=== PATIENT | male | born 1980 | race Caucasian/White ===

== ENCOUNTER 2018-07-03 13:46 | Emergency (ER) | payer MEDICAID ==
[~2018-07-03] VITALS: Ht 175.3 cm; Wt 81.0 kg
[2018-07-03 14:00] VITALS: BP 144/66; PULSE 69; RESP 18; Ht 175.3 cm; Wt 81.0 kg
[2018-07-03] MEDS ORDERED: IBUP-1542 PO (16:28)
--- NOTE | 2018-07-03 16:54 | ERD ---
ER Documentation Chief Complaint Chief Complaint lt ankle pain /swelling , soccer injury yesterday HPI Patient is a 37-year-old male presents ER for concerns of left ankle pain and swelling times 1 day. Patient states he was playing soccer yesterday when he injured his left ankle. Patient reports rolling his ankle. Patient is unable to bear weight to the affected extremity. No previous fractures or dislocations. Patient denies any head injuries. ROS All systems reviewed and are negative except as per history of present illness. Medications Home Meds Active Scripts Ibuprofen* (Motrin*) 600 Mg Tab, 600 MG PO Q6, #30 TAB Prov:ADNREA SCHILLING PA-C 07/03/18 PMhx/Soc Medical and Surgical Hx: pt denies Medical Hx, pt denies Surgical Hx History of Surgery: No Anesthesia Reaction: No Hx Neurological Disorder: No Hx Respiratory Disorders: No Hx Cardiac Disorders: No Hx Psychiatric Problems: No Hx Miscellaneous Medical Probl: No Hx Alcohol Use: No Hx Substance Use: No Hx Tobacco Use: No Smoking Status: Never smoker FmHx Family History: No diabetes Physical Exam Vitals Vital Signs Date Temp Pulse Resp B/P (MAP) Pulse Ox O2 O2 Flow FiO2 Time Delivery Rate 07/03/18 98.1 69 18 144/66 98 14:00 (92) Physical Exam GENERAL: Well-developed, well-nourished male. Appears in no acute distress. HEAD: Normocephalic, atraumatic. EYES: Pupils are equally reactive bilaterally. EOMs grossly intact. No conjunctival erythema. NECK: Supple. No meningismus. Normal range of motion of the neck. EXTREMITIES: Equal pulses bilaterally. No peripheral clubbing, cyanosis or edema. No unilateral leg swelling. NEUROLOGIC: Alert and oriented. Moving all four extremities without any diffi culty. Normal speech. SKIN: Normal color. Warm and dry. No rashes or lesions. LLE: No obvious deformity. Swelling and ecchymosis noted to the medial aspect of the foot/ankle. Skin intact. Decreased range of ankle secondary to pain. Sensation intact to light touch. Neurovascularly intact. 2+ DP and DT pulses. Procedures/MDM ED COURSE: The patient was stable throughout ED course. I kept the patient and/or family informed of laboratory and diagnostic imaging results throughout the ED course. DIAGNOSTIC IMAGING: Read by radiologist. DIAGNOSTIC IMAGING REPORT Patient: CURRY SMITH : 1980 Age: 37 Sex: M MR #: [id number] DOS: 07/03/18 1520 Ordering MD: ANDREA SCHILLING PA-C Location: [facility] Room/Bed: PROCEDURE: XR Ankle. CLINICAL INDICATION: L ankle pain TECHNIQUE: 3 views of the left ankle were performed. COMPARISON: None. FINDINGS: Acute, minimally-displaced avulsion fracture from the distal medial malleolus with adjacent soft tissue swelling. Talar dome and ankle mortise are otherwise intact. No fibular fracture. Tiny loose body in the posterior joint space with associated joint effusion. No significant arthropathy. IMPRESSION: Minimally-displaced avulsion fracture from the medial malleolus with adjacent soft tissue swelling. Joint effusion with possible small loose body in the posterior tibiotalar joint space. RPTAT:AAJJ Physician Fifi Date Time Electronically viewed and signed by Karyn Chopra Physician on 07/03/2018 16:14 RF/ CC: ANDREA SCHILLING PA-C [id number] Patient: CURRY SMITH : 1980 Age: 37 Sex: M MR #: [id number] DOS: 07/03/18 1520 Ordering MD: ANDREA SCHILLING PA-C Location: [facility] Room/Bed: PROCEDURE: XR Left Foot. CLINICAL INDICATION: L ankle pain TECHNIQUE: AP, lateral and oblique views of the left foot was obtained. The images were reviewed on a PACS workstation. COMPARISON: None. FINDINGS: Redemonstration of medial malleolar avulsion fracture, as seen on ankle radiograph. No additional fracture or dislocation of the foot is detected. No significant arthropathy or erosive changes. IMPRESSION: Redemonstration of medial malleolar avulsion fracture as seen on ankle radiograph. No additional acute fracture of the foot is detected. RPTAT:AAJJ Physician Fifi Date Time Electronically viewed and signed by Physician Fifi on 07/03/2018 16:15 RF/ CC: ANDREA SCHILLING PA-C [id number] PROCEDURES: SPLINT APPLICATION: The patient was verbally consented at bedside prior to splint application. Patient was explained the risks, benefits and alternatives to this procedure. The patient was neurovascularly intact prior to and status post application of the splint. The patient tolerated the procedure well with no complications. Splint type: Posterior ankle splint Extremity: Left lower extremity Indication: Ankle fracture MEDICATIONS GIVEN: Patient was offered pain medication however he declined per. MEDICAL DECISION MAKING: This is a 30-year-old male presents ER for concerns of left ankle pain and swelling times 1 day after playing soccer. Vital signs were reviewed. Patient was afebrile. X-ray imaging was concerning for medial malleolar avulsion fracture. Patient was placed in a short posterior leg splint and advised to remain nonweightbearing to the affected extremity. Patient will be discharged home with crutches. Patient was advised to follow-up with orth low suspicion for opedic specialist. Referral information provided. Low suspicion for compartment syndrome or septic joint. Patient was nontoxic, [id number] prior to discharge. At this time, unable to rule out any tendon and ligament injuries. PRESCRIPTIONS: Ibuprofen DISCHARGE: At this time, patient is stable for discharge and outpatient management.I have instructed the patient to follow-up with his/her primary care physician in 1-2 days. I have discussed with the patient the possibility of needing to see an contracts specialist for further workup and imaging if the pain persists. I have instructed the patient to promptly return to the ER for any new or worsening symptoms including increased pain, swelling, redness, warmth or fever. The patient and/or family expressed understanding of and agreement with this plan. All questions were answered. Home care instructions were provided. Disclaimer: Inadvertent spelling and grammatical errors are likely due to EHR/dictation software use and do not reflect on the overall quality of patient care. Also, please note that the electronic time recorded on this note does not necessarily reflect the actual time of the patient encounter. Departure Diagnosis: Primary Impression: Ankle fracture, left Encounter type: initial encounter Fracture type: closed Qualified Codes: S82.892A - Other fracture of left lower leg, initial encounter for closed fracture Condition: Fair Patient Instructions: Treating Ankle Fractures Referrals: [facility] YOU HAVE RECEIVED A MEDICAL SCREENING EXAM AND THE RESULTS INDICATE THAT YOU DO NOT HAVE A CONDITION THAT REQUIRES URGENT TREATMENT IN THE EMERGENCY DEPARTMENT. FURTHER EVALUATION AND TREATMENT OF YOUR CONDITION CAN WAIT UNTIL YOU ARE SEEN IN YOUR DOCTORS OFFICE WITHIN THE NEXT 1-2 DAYS. IT IS YOUR RESPONSIBILITY TO MAKE AN APPOINTMENT FOR FOLOW-UP CARE. IF YOU HAVE A PRIMARY DOCTOR --you should call your primary doctor and schedule an appointment IF YOU DO NOT HAVE A PRIMARY DOCTOR YOU CAN CALL OUR PHYSICIAN REFERRAL HOTLINE AT IF YOU CAN NOT AFFORD TO SEE A PHYSICIAN YOU CAN CHOSE FROM THE FOLLOWING [facility] [address] [facility] [address]. [facility] [address] [facility]. [facility] [address] [facility] [facility] [address] [facility] [facility] [address] [facility]. [facility]. [address] [facility]. [facility] YOU HAVE RECEIVED A MEDICAL SCREENING EXAM AND THE RESULTS INDICATE THAT YOU DO NOT HAVE A CONDITION THAT REQUIRES URGENT TREATMENT IN THE EMERGENCY DEPARTMENT. FURTHER EVALUATION AND TREATMENT OF YOUR CONDITION CAN WAIT UNTIL YOU ARE SEEN IN YOUR DOCTORS OFFICE WITHIN THE NEXT 1-2 DAYS. IT IS YOUR RESPONSIBILITY TO MAKE AN APPOINTMENT FOR FOLOW-UP CARE. IF YOU HAVE A PRIMARY DOCTOR --you should call your primary doctor and schedule and appointment IF YOU DO NOT HAVE A PRIMARY DOCTOR YOU CAN CALL OUR PHYSICIAN REFERRAL HOTLINE AT . IF YOU CAN NOT AFFORD TO SEE A PHYSICIAN YOU CAN CHOSE FROM THE FOLLOWING [facility] INSTITUTIONS: [facility] [address] [place] [address] [facility] [address] [place] [address] [facility] + [facility] [address] [place] [address] [facility] Ur[facility] Care 7 a.m.- 11 p.m. Every Day of the Week NO APPOINTMENT OR AUTHORIZATION NEEDED Additional Instructions: Remain in splint until seen and cleared by contracts specialist. Do not walk on leg. Call your primary care doctor TOMORROW for an appointment during the next 1-2 days.See the doctor sooner or return here if your condition worsens before your appointment time. ANDREA SCHILLING PA-C Jul 03, 2018 16:54
== END 2018-07-03 17:08 | disposition home or self-care (01) ==
LOC: FTE 13:46
DX: S82.892A Other fracture of left lower leg, initial encounter for closed fracture (principal); X58.XXXA Exposure to other specified factors, initial encounter; Y92.322 Soccer field as the place of occurrence of the external cause
CPT/HCPCS: 29505; 73610; 73630; Z7502